=== PATIENT | female | born 1990 | race Caucasian/White ===

== ENCOUNTER 2021-02-10 17:25 | Emergency (ER) | payer BC ==
[2021-02-10 18:00] LABS: HEMOGLOBIN 13.1 gm/dl (12.3-15.3); RED BLOOD COUNT 4.27 M/UL (4.00-5.10); WHITE BLOOD COUNT 9.1 K/UL (4.5-11.0)
[2021-02-10 19:04] LABS: BUN/CREATININE RATIO 13 (0-10)
== END 2021-02-10 21:22 | disposition home or self-care (01) ==
LOC: ER1 17:25
PROVIDERS: Nurse Practitioner
DX: O20.8 Other hemorrhage in early pregnancy (principal); Z3A.01 Less than 8 weeks gestation of pregnancy
CPT/HCPCS: 76830; 80053; 84702; 85025; 86900; 86901; 99284; J7030

== ENCOUNTER → 2021-04-01 | Outpatient (CLI) | payer BC | LOC: HEART 5 08:23 | DX: R00.2 Palpitations (principal) ==

== ENCOUNTER 2021-09-09 13:50 | Outpatient (CLI) | payer BC | END 2021-09-09 17:32 | disposition home or self-care (01) | LOC: GENOP 13:50 | DX: O21.2 Late vomiting of pregnancy (principal); O99.891 Other specified diseases and conditions complicating pregnancy; R10.30 Lower abdominal pain, unspecified; M54.9 Dorsalgia, unspecified; Z3A.37 37 weeks gestation of pregnancy | CPT/HCPCS: 81001; 96361; 96365; 96372; J2405; J7120 ==

== ENCOUNTER 2021-09-16 05:21 | Outpatient (CLI) | payer BC | END 2021-09-16 08:55 | disposition home or self-care (01) | LOC: OB 05:21 → GENOP 05:21 → OB 08:55 → EDSTATUS 12:55 | DX: O32.1XX0 Maternal care for breech presentation, not applicable or unspecified (principal); Z3A.38 38 weeks gestation of pregnancy | CPT/HCPCS: 76815; 81001; 96372; J3105 ==

== ENCOUNTER 2021-09-23 16:49 | Inpatient (IN) | payer BC ==
[~2021-09-23] VITALS: Ht 165.1 cm; Wt 73.9 kg
[2021-09-23 18:37] LABS: HEMOGLOBIN 11.7 gm/dl (12.3-15.3); RED BLOOD COUNT 3.94 M/UL (4.00-5.10); WHITE BLOOD COUNT 8.4 K/UL (4.5-11.0)
[2021-09-23] MEDS ORDERED: PRENATAL VITAM1 EAC6 PO (19:07)
[2021-09-23] MEDS ORDERED: XYZAL5 MG PO (19:07)
[2021-09-23] MEDS ORDERED: PEPCID20 MG PO (19:08)
[2021-09-24] MEDS ORDERED: DOCUSATE SODIU100 MG PO (18:50)
[2021-09-24] MEDS ORDERED: IBUPROFEN600 MG PO (18:50)
[2021-09-25 04:39] LABS: HEMOGLOBIN 11.4 gm/dl (12.3-15.3)
== END 2021-09-26 16:18 | disposition home or self-care (01) | DRG 807 ==
LOC: GENOP 16:49 → OB 17:03 → CDU 17:03 → OB 17:15
PROVIDERS: ADMIT Obstetrics & Gynecology
PROC: 10E0XZZ Delivery of Products of Conception, External Approach (ICD-10-PCS; principal; 2021-09-24)
PROC: 10907ZC Drainage of Amniotic Fluid, Therapeutic from Products of Conception, Via Natural or Artificial Opening (ICD-10-PCS; 2021-09-24)
PROC: 3E033VJ Introduction of Other Hormone into Peripheral Vein, Percutaneous Approach (ICD-10-PCS; 2021-09-24)
PROC: 0HQ9XZZ Repair Perineum Skin, External Approach (ICD-10-PCS; 2021-09-24)
PROC: 0UH97HZ Insertion of Contraceptive Device into Uterus, Via Natural or Artificial Opening (ICD-10-PCS; 2021-09-24)
PROC: 4A1H7CZ Monitoring of Products of Conception, Cardiac Rate, Via Natural or Artificial Opening (ICD-10-PCS; 2021-09-24)
PROC: 10H073Z Insertion of Monitoring Electrode into Products of Conception, Via Natural or Artificial Opening (ICD-10-PCS; 2021-09-24)
PROC: 3E0234Z Introduction of Serum, Toxoid and Vaccine into Muscle, Percutaneous Approach (ICD-10-PCS; 2021-09-24)
DX: O99.824 Streptococcus B carrier state complicating childbirth (principal); Z37.0 Single live birth; O13.4 Gestational [pregnancy-induced] hypertension without significant proteinuria, complicating childbirth; Z20.822 Contact with and (suspected) exposure to COVID-19; Z3A.39 39 weeks gestation of pregnancy; O70.0 First degree perineal laceration during delivery; Z23 Encounter for immunization
CPT/HCPCS: 36415; 81001; 82800; 85014; 85018; 85025; 90715; 96372; J2590; J7120